=== PATIENT | female | born 2000 | race African-American/Black ===

== ENCOUNTER 2023-01-06 18:46 | Emergency (ER) | payer OTHER, SELFPAY ==
--- NOTE | ~2023-01-06 | XR_ITS ---
EXAMINATION: XR chest 2V Exam Date/Time: 01/06/2023 19:18 PALEOLOGY PROFESSOR HISTORY: chest pain, sob, arm tingling Comparison: None available. RESULT: Lines, tubes, and devices: None. Lungs and pleura: Clear. Cardiomediastinal silhouette: Normal. Other: No acute osseous or upper abdominal finding. IMPRESSION: No acute cardiopulmonary process. Reviewed, dictated and finalized at location K. OLOGY PROFESSOR
--- NOTE | 2023-01-06 18:49 | ED.CHESTPAIN ---
HPI - Chest Pain General Chief Complaint: Chest Pain Stated Complaint: lt forearm/hand tingle sensation, chest pain Time Seen by Provider: 01/06/23 18:47 Source: patient Mode of arrival: ambulatory Limitations: no limitations History of Present Illness HPI narrative: Karolyn is a 22-year-old female patient presenting to the clinic today with complaints of chest pain, shortness of breath, of the left forearm arm/hand numbness and tingling x2 weeks. Denies any chest pain or shortness of breath currently while in the exam room but was having some chest discomfort prior to arrival. Pain is over bilateral breast bone intermittently and radiates into her back. When she has pain, it is sharp and she rates the pain 7 or 8 out of 10. States pain is worse with inspiration at times. States she only has shortness of breath during exertion. She is a nonsmoker. No personal history of hypertension, high cholesterol, or diabetes. She is not currently on control. Related Data Allergies Allergy/AdvReac Type Severity Reaction Status Date / Time No Known Allergies Allergy Verified 01/06/23 18:54 Review of Systems Review of Systems: Pertinent positives per HPI. Patient denies any fever, chills, rash, headache, visual changes, dizziness, cough, runny nose, sore throat, shortness of breath, chest pain, palpitations, nausea, vomiting, diarrhea, constipation, abdominal pain, or any urinary issues. PMFSH Comments At the time of my signature, I reviewed and agree with the nursing past medical, surgical, social, and family history. There is no relevant family history pertinent to the patient complaint. Exam Narrative: General: Well-developed, well nourished, in no apparent distress Head: Normocephalic, atraumatic Eyes: Pupils equally round and reactive to light bilaterally, EOM intact, sclera and conjunctive clear, no discharge, lids normal Ears: TMs intact and clear, ear canals clear, no drainage, grossly hearing normal. Nose: Nares patent, no discharge, no inflammation, no sinus tenderness. Mouth: Oropharynx without lesions or masses, good dentition, MMM. Neck: Supple, trachea midline, no enlargement of anterior or posterior cervical nodes, no thyroid masses or goiter palpable. Chest: Even rise and fall of chest wall with respirations, no bruising or swelling noted, nontender to palpation Cardio: Regular rate and rhythm, s1 and s2 normal, no murmur appreciated. Resp: Clear to auscultation bilaterally anteriorly and posteriorly, no rhonchi, rales, wheezing or rubs Course Course Emergency Course: Portions of this record may have been created with voice recognition software. Level of Care: Express Care Visit Vital Signs Vital signs: Vital signs reviewed MDM - Chest Pain MDM Narrative Medical decision making narrative: At the time of visit patient is resting comfortably on the exam table. EKG shows sinus rhythm with sinus arrhythmia with heart rate of 66 beats per minute. Chest x-ray was performed and was negative for any active cardiopulmonary disease. Differentials include pleurisy, costochondritis, atypical chest pain, pancreatitis, anxiety. Chest discomfort and shortness of breath has resolved in the clinic today but she does have a slight numbness and tingling in the left forearm/wrist. I will send in prescription for prednisone to help with the inflammation as well as this will cover her for costochondritis or pleurisy. Specific instructions were given to go to the emergency room if any of her symptoms worsen. Recommend following up with her PCP in 1-2 days for lab work. She voiced understanding and agrees with the treatment plan. Differential Diagnosis Differential diagnosis: Likely atypical chest pain, costochondritis, chest pain and other (Anxiety, pancreatitis) Imaging Data Radiologist's impression: [facility] [address] [place] [address] [place] [address] XRay Report Signed Patient: Elke
[2023-01-06 18:59] VITALS: BP 137/87; PULSE 84; RESP 20; TEMP 36.8; O2SAT 100
--- NOTE | 2023-01-06 19:11 | ECG_ITS ---
Measurements Intervals [place] Rate: 66 P: 29 WV: 159 QRS: 48 QRSD: 85 T: 42 QT: 382 QTc: 402 Interpretive Statements SINUS RHYTHM WITH SINUS ARRHYTHMIA POSSIBLE LEFT ATRIAL ENLARGEMENT [-0.1mV P WAVE IN V1/V2] NO PREVIOUS ECG AVAILABLE FOR COMPARISON Electronically Signed On 01-07-2023 11:26:39 DIE [facility]ZER by Magda Prather M.D.
== END 2023-01-06 19:37 | disposition home or self-care (01) ==
PROVIDERS: Emergency Provider Nurse Practitioner Family
DX: R20.2 Paresthesia of skin (principal); R07.89 Other chest pain; R06.00 Dyspnea, unspecified
CPT/HCPCS: 71046; 93005; 99213; G0463